=== PATIENT | female | born 1960 | race Caucasian/White ===

== ENCOUNTER → 2018-05-26 14:16 | Outpatient (CLI) | payer BC, SELFPAY ==
[2018-05-26 16:19] LABS: CRP < 2.90 mg/L (0.0-3.0)
[2018-05-28 20:08] LABS: Endomysial Antibody IgA Negative (Negative)
[2018-05-29 11:11] LABS: Immunoglobulin A 98 mg/dL (87-352); t-Transglutaminase IgA <2 U/mL (0-3)
== END ==
PROVIDERS: Referring Provider Internal Medicine Gastroenterology; Visit Provider Internal Medicine Gastroenterology
DX: R10.9 Unspecified abdominal pain (principal); R19.7 Diarrhea, unspecified
CPT/HCPCS: 36415; 82784; 83516; 86140; 86255